=== PATIENT | male | born 1970 | race Caucasian/White ===

== ENCOUNTER 2017-03-27 15:27 | Emergency (ER) | payer BC ==
[~2017-03-27] VITALS: Ht 190.5 cm; Wt 120.9 kg
[2017-03-27 15:32] VITALS: TEMP 36.6; O2SAT 99; Ht 190.5 cm; Wt 120.9 kg
[2017-03-27] MEDS ORDERED: MAGNESIUM SULFATE 1GM / D5W 1 GM BAG IV STA (15:54)
[2017-03-27] MEDS ORDERED: DiphenhydrAMINE HCL 50 MG/ML VIAL IV STA (15:54)
[2017-03-27] MEDS ORDERED: KETOROLAC TROMETHAMINE 30 MG/ML VIAL IV STA (15:54)
[2017-03-27] MEDS ORDERED: PROCHLORPERAZINE 5 MG/ML 2 ML VIAL IV STA (15:54)
[2017-03-27] MEDS ORDERED: SODIUM CHLORIDE 0.9% 500ML 500 ML IV STA (15:54)
--- NOTE | 2017-03-27 16:08 | EMERGENCY ROOM VISIT NOTE ---
History Report prepared by Cherie: Houston Murguia Under the Supervision of: Dr. Hadley Duval M.D. First contact with patient: 15:46 Chief Complaint: HEADACHE Stated Complaint: HEADACHE, UPSET STOMACH, VISION DISTURBANCES History of Present Illness The patient is a 46 year old male who presents to the Emergency Room with complaints of a sudden onset headache occurring earlier in the day. The patient states that he was in a meeting before, and he started having some blurry vision , sweating, and was not feeling well. He notes that he has never had a headache like this in the past, and he is currently nauseous and vomiting. The patient notes that he does not see a neurologist, and he has never had a CT scan or MRI. He has a history of A-fib, and he takes an aspirin and Toprol. Additionally , he just had a patch of skin cancer removed the other day. Source of History: patient Onset: earlier today Position: head Quality: ache Timing: other (sudden onset) Associated Symptoms: + nausea, + vomiting Note: Associated symptoms: Blurry vision Review of Systems See HPI for pertinent positives & negatives. A total of 10 systems reviewed and were otherwise negative. Past Medical & Surgical Medical Problems: (1) Parotid mass (2) Parotid mass Family History FHx: cancer Hypertension Social History Smoking Status: Never Smoker Alcohol Use: occasionally Marital Status: Occupation Status: employed Current/Historical Medications Scheduled Aspirin (Aspirin Ec), 81 MG PO DAILY Metoprolol Succinate (Toprol Xl), 25 MG PO QAM Allergies Coded Allergies: No Known Allergies (Unverified , 03/27/17) Physical Exam Vital Signs Date Time Temp Pulse Resp B/P (MAP) Pulse Ox O2 Delivery O2 Flow Rate FiO2 03/27/17 17:20 57 12 130/74 98 03/27/17 17:05 63 18 138/73 98 Room Air 03/27/17 16:50 59 22 97 Room Air 03/27/17 16:47 121/82 Room Air 03/27/17 16:35 69 22 96 Room Air 03/27/17 16:33 86 03/27/17 16:33 142/92 98 Room Air 03/27/17 16:05 57 16 Room Air 03/27/17 16:01 138/80 Room Air 03/27/17 15:50 56 20 100 Room Air 03/27/17 15:32 99 Room Air 12/13/17 15:32 36.6 52 20 149/81 99 Room Air Physical Exam GENERAL: Patient is a healthy-appearing well-nourished male HEAD: Normocephalic atraumatic EYES: Ocular movements intact pupils equal and react to light OROPHARYNX mucous membranes are moist no exudates present no erythema or edema present NECK: No evidence of meningitis or encephalitis on exam. Supple no nuchal rigidity CHEST: Good equal expansion LUNGS: Clear and equal to auscultation CARDIAC: Normal S1 and S2 ABDOMEN: Soft nontender no guarding BACK: No CVA tenderness EXTREMITIES: No pain upon palpation normal muscle strength in all groups no clubbing cyanosis or edema NEURO: Patient is following commands and answering questions appropriately. Alert and oriented x3 Cranial Nerves 2-12 grossly intact Medical Decision & Procedures ER Provider Diagnostic Interpretation: Radiology results as stated below per my review and radiologist interpretation: CT OF THE HEAD WITHOUT CONTRAST CLINICAL HISTORY: Severe headache. COMPARISON STUDY: No previous studies for comparison. CT DOSE: 614.27 mGy.cm TECHNIQUE: Helical axial images of the head were obtained without IV contrast. Automated exposure control was utilized for the study. A dose lowering technique was utilized adhering to the principles of ALARA. FINDINGS: There is a moderate amount of acute subarachnoid hemorrhage within the basilar cisterns, predominantly within the prepontine and perimesencephalic cisterns. There is suspected minimal intraventricular hemorrhage within the third ventricle. There is also suspected trace subarachnoid hemorrhage within the sylvian fissures. There is no hydrocephalus. There are no CT findings to suggest acute dural sinus thrombosis or acute territorial infarct. There are no significant calvarial abnormalities. Visualized portions of the sinuses and mastoid air cells are clear. IMPRESSION: Moderate acute subarachnoid hemorrhage, predominantly within the prepontine and perimesencephalic cisterns with additional scattered foci of subarachnoid hemorrhage. Trace intraventricular hemorrhage without hydrocephalus. The findings are highly suggestive of a ruptured intracranial aneurysm, possibly of the basilar tip. A CTA of the head is recommended. Urgent neurosurgical consultation is recommended. Findings discussed with Dr. Duval at time of dictation. Electronically signed by: Jose Polo M.D. 03/27/2017 4:48 PM Dictated Date/Time: 03/27/2017 4:38 PM Laboratory Results 03/27/17 15:55 Red Blood Count 4.82, Mean Corpuscular Volume 88.2, Mean Corpuscular Hemoglobin 30.7, Mean Corpuscular Hemoglobin Concent 34.8, Mean Platelet Volume 9.8, Neutrophils (%) (Auto) 66.1, Lymphocytes (%) (Auto) 26.0, Monocytes (%) (Auto) 6.1, Eosinophils (%) (Auto) 1.2, Basophils (%) (Auto) 0.2, Neutrophils # (Auto) 6.19, Lymphocytes # (Auto) 2.43, Monocytes # (Auto) 0.57, Eosinophils # (Auto) 0.11, Basophils # (Auto) 0.02 03/27/17 15:55 Test 03/27/17 15:55 White Blood Count 9.36 K/uL (4.8-10.8) Red Blood Count 4.82 M/uL (4.7-6.1) Hemoglobin 14.8 g/dL (14.0-18.0) Hematocrit 42.5 % (42-52) Mean Corpuscular Volume 88.2 fL (80-100) Mean Corpuscular Hemoglobin 30.7 pg (25-34) Mean Corpuscular Hemoglobin Concent 34.8 g/dl (32-36) Platelet Count 265 K/uL (130-400) Mean Platelet Volume 9.8 fL (7.4-10.4) Neutrophils (%) (Auto) 66.1 % Lymphocytes (%) (Auto) 26.0 % Monocytes (%) (Auto) 6.1 % Eosinophils (%) (Auto) 1.2 % Basophils (%) (Auto) 0.2 % Neutrophils # (Auto) 6.19 K/uL (1.4-6.5) Lymphocytes # (Auto) 2.43 K/uL (1.2-3.4) Monocytes # (Auto) 0.57 K/uL (0.11-0.59) Eosinophils # (Auto) 0.11 K/uL (0-0.5) Basophils # (Auto) 0.02 K/uL (0-0.2) RDW Standard Deviation 42.0 fL (36.4-46.3) RDW Coefficient of Variation 13.0 % (11.5-14.5) Immature Granulocyte % (Auto) 0.4 % Immature Granulocyte # (Auto) 0.04 K/uL (0.00-0.02) Anion Gap 7.0 mmol/L (3-11) Est Creatinine Clear Calc Drug Dose 112.0 ml/min Estimated GFR () 88.6 Estimated GFR (Non- 76.4 BUN/Creatinine Ratio 11.6 (10-20) Calcium Level 9.0 mg/dl (8.5-10.1) Total Bilirubin 0.6 mg/dl (0.2-1) Direct Bilirubin 0.2 mg/dl (0-0.2) Aspartate Amino Transf (AST/SGOT) 27 U/L (15-37) Alanine Aminotransferase (ALT/SGPT) 47 U/L (12-78) Alkaline Phosphatase 84 U/L (45-117) Total Protein 7.4 gm/dl (6.4-8.2) Albumin 4.0 gm/dl (3.4-5.0) Lipase 75 U/L (73-393) Labs reviewed by ED physician. Medications Administered Medications (Trade) Dose Ordered Sig/Judith Route Start Time Stop Time Status Last Admin Dose Admin Sodium Chloride 500 ml @ 999 mls/hr Q31M STAT IV 03/27/17 15:54 03/27/17 16:24 DC 03/27/17 16:00 999 MLS/HR Ketorolac Tromethamine (Toradol Inj) 30 mg NOW STAT IV 03/27/17 15:54 03/27/17 15:58 DC 03/27/17 16:07 30 MG Prochlorperazine Edisylate (Compazine Inj) 10 mg NOW STAT IV 03/27/17 15:54 03/27/17 15:58 DC 03/27/17 16:06 10 MG Diphenhydramine HCl (Benadryl Inj) 50 mg NOW STAT IV 03/27/17 15:54 03/27/17 15:58 DC 03/27/17 16:07 50 MG Magnesium Sulfate (Magnesium Sulfate) 1 gm NOW STAT IV 03/27/17 15:54 03/27/17 15:58 DC 03/27/17 16:06 1 GM ED Course 1546: Past medical records reviewed. The patient was evaluated in room A10. A complete history and physical examination was performed. 1554: Magnesium Sulfate 1gm IV, Benadryl 50mg IV, Compazine 10mg IV, Toradol 30mg IV, Sodium Chloride 500 ml @ 999 mls/hr IV 1627: I reevaluated the patient, and I discussed the results with him. 1641: I discussed the patient's case with Dr. Jessika Yeh Neurosurgery, and he is going to accept the patient as a transfer. 1650: I reevaluated the patient, and I discussed the treatment plan with him. He is going to be transferred. Medical Decision Differential diagnosis: Etiologies such as migraine headache, meningitis, sinusitis, CO exposure, ICH, SAH, infection, tumor, headache, sinus thrombosis, arterial dissection, as well as others were entertained. This is a 46-year-old male who presents emergency department complaining of severe headache. The patient is actively vomiting upon arrival to the emergency department. He has no evidence of meningitis encephalitis on examination. Based on the patient's presentation he was immediately sent for a CAT scan of the head. This was concerning for a subarachnoid hemorrhage. For this reason I immediately discussed the case with the on-call neurosurgeon at [facility] who agreed to accept the patient. In the emergency department the patient given normal saline bolus Toradol Compazine and Benadryl. Repeat examination revealed improvement patient's symptoms. Patient and are in agreement with the treatment plan. Medication Reconcilliation Current Medication List: was personally reviewed by me Blood Pressure Screening Patient's blood pressure: Elevated blood pressure Monitored by the Neurosurgeon Consults Time Called: 1630 Consulting Physician: Dr. Jessika Yeh Neurosurgery Returned Call: 1641 I discussed the patient's case with Dr. Jessika Desai, and he is going to accept the patient as a transfer. Impression Primary Impression: Subarachnoid hemorrhage Critical Care I have personally spent greater than 30 minutes of critical care time in the direct management of this patient. This includes bedside care, interpretation of diagnostic studies, and testing, discussion with consultants, patient, and family members, and other required patient management activities. This 30 minutes is in excess of all separately billable procedures. Scribe Attestation The scribe's documentation has been prepared under my direction and personally reviewed by me in its entirety. I confirm that the note above accurately reflects all work, treatment, procedures, and medical decision making performed by me. Departure Information Dispostion Transfer Acute Care Facility Referrals Juan Miguel Chan III, M.D. (PCP) Patient Instructions My [facility]
[2017-03-27 16:11] LABS: BASO % 0.2 %; BASO ABS # 0.02 K/uL (0-0.2); COMPLETE YES; EOS % 1.2 %; HEMATOCRIT 42.5 % (42-52); IG% 0.4 %; LYMPH ABS # 2.43 K/uL (1.2-3.4); MEAN CELL VOLUME 88.2 fL (80-100); MEAN CORPUSCULAR HEMOGLOBIN 30.7 pg (25-34); MEAN CORPUSCULAR HGB CONC 34.8 g/dl (32-36); MEAN PLATELET VOLUME 9.8 fL (7.4-10.4); MONO % 6.1 %; NEUT % 66.1 %; PLATELET COUNT 265 K/uL (130-400); RED BLOOD COUNT 4.82 M/uL (4.7-6.1); WHITE BLOOD COUNT 9.36 K/uL (4.8-10.8)
[2017-03-27 16:29] LABS: BUN/CREATININE RATIO 11.6 (10-20); CREATININE 1.13 mg/dl (0.60-1.40); POTASSIUM 3.5 mmol/L (3.5-5.1)
--- NOTE | 2017-03-27 16:49 | DIAGNOSTIC IMAGING REPORT ---
CT OF THE HEAD WITHOUT CONTRAST CLINICAL HISTORY: Severe headache. COMPARISON STUDY: No previous studies for comparison. CT DOSE: 614.27 mGy.cm TECHNIQUE: Helical axial images of the head were obtained without IV contrast. Automated exposure control was utilized for the study. A dose lowering technique was utilized adhering to the principles of ALARA. FINDINGS: There is a moderate amount of acute subarachnoid hemorrhage within the basilar cisterns, predominantly within the prepontine and perimesencephalic cisterns. There is suspected minimal intraventricular hemorrhage within the third ventricle. There is also suspected trace subarachnoid hemorrhage within the sylvian fissures. There is no hydrocephalus. There are no CT findings to suggest acute dural sinus thrombosis or acute territorial infarct. There are no significant calvarial abnormalities. Visualized portions of the sinuses and mastoid air cells are clear. IMPRESSION: Moderate acute subarachnoid hemorrhage, predominantly within the prepontine and perimesencephalic cisterns with additional scattered foci of subarachnoid hemorrhage. Trace intraventricular hemorrhage without hydrocephalus. The findings are highly suggestive of a ruptured intracranial aneurysm, possibly of the basilar tip. A CTA of the head is recommended. Urgent neurosurgical consultation is recommended. Findings discussed with Dr. Duval at time of dictation. Electronically signed by: Jose Polo M.D. 03/27/2017 4:48 PM Dictated Date/Time: 03/27/2017 4:38 PM
[2017-03-27] MEDS ORDERED: METO25TA3 PO (16:50)
[2017-03-27] MEDS ORDERED: ASPI81TA28 PO (16:50)
[2017-03-27 17:20] VITALS: BP 130/74; PULSE 57; O2SAT 98
== END 2017-03-27 17:20 | disposition short-term general hospital (02) ==
LOC: C.EDB 15:29 → C.EDA 17:20
DX: I60.9 Nontraumatic subarachnoid hemorrhage, unspecified (principal); R11.2 Nausea with vomiting, unspecified; R03.0 Elevated blood-pressure reading, without diagnosis of hypertension; Z79.82 Long term (current) use of aspirin; Z82.49 Family history of ischemic heart disease and other diseases of the circulatory system